=== PATIENT | female | born 1950 ===

== ENCOUNTER 2019-08-30 09:05 | Day surgery (SDC) | payer OTHER | END 2019-08-30 15:00 | disposition home or self-care (01) | LOC: AMB-ENDOS 09:05 | DX: D12.2 Benign neoplasm of ascending colon (principal) ==

== ENCOUNTER 2019-10-07 10:30 | Inpatient (IN) | payer OTHER ==
[~2019-10-07] VITALS: Ht 162.6 cm; Wt 62.1 kg
[~2019-10-07 10:30] MED LIST: ADALAT CC30 MG PO; FORTAMET500 MG PO; GLIPIZIDE XL5 MG PO; MICROZIDE12.5 MG PO; SIMVASTATIN10 MG PO; TOPROL XL50 M1 PO; ZESTRIL40 M1 PO
[2019-10-11] MEDS ORDERED: OXYC1TAB9 PO (12:10)
[2019-10-11] MEDS ORDERED: HYOSCYAMINE0.125 M1 SL (12:10)
== END 2019-10-11 14:59 | disposition home or self-care (01) | DRG 331 ==
LOC: SURG 10-08 08:43 → O/R 10-08 08:43 → SURH 10-08 10:30 → O/R 10-08 10:30 → SURG 10-08 21:20 → SURH 10-08 22:15 → SURG 10-09 20:01
PROVIDERS: ADMIT Surgery
PROC: 07TB4ZZ Resection of Mesenteric Lymphatic, Percutaneous Endoscopic Approach (ICD-10-PCS; 2019-10-08)
PROC: 0DJD8ZZ Inspection of Lower Intestinal Tract, Via Natural or Artificial Opening Endoscopic (ICD-10-PCS; 2019-10-08)
PROC: 0DTN4ZZ Resection of Sigmoid Colon, Percutaneous Endoscopic Approach (ICD-10-PCS; principal; 2019-10-08 22:15)
DX: D12.7 Benign neoplasm of rectosigmoid junction (principal); R59.0 Localized enlarged lymph nodes